=== PATIENT | female | born 1955 | race Caucasian/White ===

== ENCOUNTER 2016-07-07 08:27 | Inpatient (IN) | payer BC ==
[~2016-07-07] VITALS: Ht 162.6 cm; Wt 142.9 kg
[~2016-07-07 08:27] MED LIST: ASPIR-LOW81 MG PO; BENADRYL25 MG PO; CLARITIN,ALAVAR10 MG PO; CLARITIN10 M3 PO; FLUOXETINE HCL20 MG PO; FUROSEMIDE20 MG PO; K-DUR10 MEQ PO; LASIX20 MG PO; LIPITOR40 MG PO; LISINOPRIL20 MG PO; LISINOPRIL5 MG PO; LO-DOSE ASPIRIN81 M2 PO; METOPROLOL SUCC25 MG PO; PANTOPRAZOLE SO40 MG PO; POTASSIUM CHLO20 ME1 PO; PREDNISONE50 MG PO; SINGULAIR10 MG PO; TOPROL XL50 MG PO; TYLENOL REGULA325 MG PO; VENTOLIN HFA18 GM IH; ZESTRIL20 MG PO
[2016-07-14 11:08] VITALS: BP 104/59
[2016-07-14 17:55] LABS: MCH 24.8 PG (29.0-34.0); MCHC 31.8 G/DL (30.0-36.0); MCV 77.9 FL (83-99); MEAN PLAT.VOLUME 10.3 uM^3 (9.5-12.4); PLATELET COUNT 268 K/uL (156-360); RBC DIS.WIDTH-CV 15.7 % (11.8-14.6); RBC DIS.WIDTH-SD 44.4 % (39-53); RED BLOOD COUNT 4.88 M/uL (3.80-5.20)
[2016-07-14 18:02] LABS: WHITE BLOOD COUNT 12.3 K/uL (4.1-10.2)
[2016-07-14 18:12] LABS: ANION GAP 10 MEQ/L (2-14); CHLORIDE 103 MEQ/L (99-109); MAGNESIUM 1.5 mg/dl (1.3-2.7); POTASSIUM 3.3 MEQ/L (3.7-5.4); SAMPLE HEMOLYSIS CHECK 0; SAMPLE ICTERIC CHECK 0; SAMPLE LIPEMIA CHECK 0; SODIUM 138 MEQ/L (136-147)
[2016-07-14 18:18] LABS: GFR ESTIMATE (CALCULATED) > 59 mL/min/; GLUCOSE 217 mg/dL (70-99); UREA NITROGEN (BUN) 6 mg/dL (9-23)
[2016-07-14 18:22] LABS: TROP-I INTERPRETATION NEGATIVE; TROPONIN-I < 0.01 ng/mL (0.0-0.30)
[2016-07-14 20:12] VITALS: BP 99/46
[2016-07-14 21:00] VITALS: BP 99/52
[2016-07-14 21:30] VITALS: BP 90/49
[2016-07-15] VITALS: BP 102/60
[2016-07-15 04:00] VITALS: BP 112/57
[2016-07-15 06:38] LABS: HEMATOCRIT 34.2 % (36.0-46.0); MCH 24.8 PG (29.0-34.0); MCV 80.1 FL (83-99); PLATELET COUNT 304 K/uL (156-360); RED BLOOD COUNT 4.27 M/uL (3.80-5.20); WHITE BLOOD COUNT 10.1 K/uL (4.1-10.2)
[2016-07-15 07:04] LABS: ANION GAP 7 MEQ/L (2-14); CHLORIDE 101 MEQ/L (99-109); GFR ESTIMATE (CALCULATED) > 59 mL/min/; GLUCOSE 150 mg/dL (70-99); MAGNESIUM 1.6 mg/dl (1.3-2.7); SAMPLE HEMOLYSIS CHECK 0; SAMPLE ICTERIC CHECK 0; SAMPLE LIPEMIA CHECK 0; SODIUM 135 MEQ/L (136-147); UREA NITROGEN (BUN) 8 mg/dL (9-23)
[2016-07-15 07:05] LABS: POTASSIUM 4.1 MEQ/L (3.7-5.4)
[2016-07-15 07:09] LABS: TROP-I INTERPRETATION NEGATIVE; TROPONIN-I < 0.01 ng/mL (0.0-0.30)
[2016-07-15 07:52] VITALS: BP 113/65
[2016-07-15 12:04] VITALS: BP 105/67
[2016-07-15] MEDS ORDERED: ALLOPURINOL100 MG PO (15:33)
[2016-07-15] MEDS ORDERED: ATORVASTATIN CA40 MG PO (15:35)
[2016-07-15 16:00] VITALS: BP 126/65
[2016-07-15 20:00] VITALS: BP 102/54
[2016-07-16] VITALS (7 sets, daily range): BP systolic 102–122; BP diastolic 51–69
[2016-07-16 06:21] LABS: HEMATOCRIT 31.9 % (36.0-46.0); MCH 24.7 PG (29.0-34.0); MCHC 30.4 G/DL (30.0-36.0); MCV 81.4 FL (83-99); MEAN PLAT.VOLUME 10.9 uM^3 (9.5-12.4); PLATELET COUNT 260 K/uL (156-360); RBC DIS.WIDTH-CV 16.2 % (11.8-14.6); RBC DIS.WIDTH-SD 48.4 % (39-53); RED BLOOD COUNT 3.92 M/uL (3.80-5.20); WHITE BLOOD COUNT 9.2 K/uL (4.1-10.2)
[2016-07-16 07:09] LABS: ANION GAP 6 MEQ/L (2-14); CHLORIDE 102 MEQ/L (99-109); GFR ESTIMATE (CALCULATED) > 59 mL/min/; GLUCOSE 119 mg/dL (70-99); MAGNESIUM 1.6 mg/dl (1.3-2.7); SAMPLE HEMOLYSIS CHECK 0; SAMPLE ICTERIC CHECK 0; SAMPLE LIPEMIA CHECK 0; SODIUM 136 MEQ/L (136-147); UREA NITROGEN (BUN) 8 mg/dL (9-23)
[2016-07-17 04:17] VITALS: BP 109/53
[2016-07-17 07:49] LABS: HEMATOCRIT 28.6 % (36.0-46.0); MCH 24.6 PG (29.0-34.0); MCHC 30.4 G/DL (30.0-36.0); MCV 80.8 FL (83-99); MEAN PLAT.VOLUME 10.4 uM^3 (9.5-12.4); PLATELET COUNT 263 K/uL (156-360); RBC DIS.WIDTH-CV 16.1 % (11.8-14.6); RBC DIS.WIDTH-SD 47.9 % (39-53); RED BLOOD COUNT 3.54 M/uL (3.80-5.20); WHITE BLOOD COUNT 6.9 K/uL (4.1-10.2)
[2016-07-17 08:16] VITALS: BP 119/53
[2016-07-17 08:17] LABS: ANION GAP 9 MEQ/L (2-14); CHLORIDE 100 MEQ/L (99-109); GFR ESTIMATE (CALCULATED) > 59 mL/min/; GLUCOSE 129 mg/dL (70-99); MAGNESIUM 1.7 mg/dl (1.3-2.7); POTASSIUM 3.8 MEQ/L (3.7-5.4); SAMPLE HEMOLYSIS CHECK 0; SAMPLE ICTERIC CHECK 0; SAMPLE LIPEMIA CHECK 0; SODIUM 139 MEQ/L (136-147); UREA NITROGEN (BUN) 4 mg/dL (9-23)
[2016-07-17 15:00] VITALS: BP 128/60
[2016-07-17 20:10] VITALS: BP 99/52
[2016-07-17 23:27] VITALS: BP 111/59
[2016-07-18 03:42] VITALS: BP 116/67
[2016-07-18 06:57] LABS: HEMATOCRIT 31.4 % (36.0-46.0); MCH 25.4 PG (29.0-34.0); MCHC 31.2 G/DL (30.0-36.0); MCV 81.3 FL (83-99); MEAN PLAT.VOLUME 10.4 uM^3 (9.5-12.4); PLATELET COUNT 277 K/uL (156-360); RBC DIS.WIDTH-CV 16.1 % (11.8-14.6); RBC DIS.WIDTH-SD 47.6 % (39-53); RED BLOOD COUNT 3.86 M/uL (3.80-5.20); WHITE BLOOD COUNT 6.6 K/uL (4.1-10.2)
[2016-07-18 07:21] LABS: ANION GAP 6 MEQ/L (2-14); CHLORIDE 102 MEQ/L (99-109); GFR ESTIMATE (CALCULATED) > 59 mL/min/; GLUCOSE 125 mg/dL (70-99); MAGNESIUM 1.7 mg/dl (1.3-2.7); POTASSIUM 3.4 MEQ/L (3.7-5.4); SAMPLE HEMOLYSIS CHECK 0; SAMPLE ICTERIC CHECK 0; SAMPLE LIPEMIA CHECK 0; SODIUM 139 MEQ/L (136-147); UREA NITROGEN (BUN) 3 mg/dL (9-23)
[2016-07-18 09:00] VITALS: BP 127/76
[2016-07-18 12:00] VITALS: BP 127/70
[2016-07-18 16:00] VITALS: BP 131/70
[2016-07-18 19:51] VITALS: BP 123/66
[2016-07-18 23:00] VITALS: BP 122/69
[2016-07-19 02:57] VITALS: BP 135/72
[2016-07-19 06:55] LABS: HEMATOCRIT 33.1 % (36.0-46.0); MCH 25.1 PG (29.0-34.0); MCHC 31.1 G/DL (30.0-36.0); MCV 80.7 FL (83-99); MEAN PLAT.VOLUME 10.4 uM^3 (9.5-12.4); PLATELET COUNT 341 K/uL (156-360); RBC DIS.WIDTH-CV 16.2 % (11.8-14.6); RBC DIS.WIDTH-SD 47.6 % (39-53); WHITE BLOOD COUNT 7.7 K/uL (4.1-10.2)
[2016-07-19 07:25] LABS: ANION GAP 14 MEQ/L (2-14); CHLORIDE 99 MEQ/L (99-109); GFR ESTIMATE (CALCULATED) > 59 mL/min/; GLUCOSE 128 mg/dL (70-99); MAGNESIUM 1.7 mg/dl (1.3-2.7); POTASSIUM 3.7 MEQ/L (3.7-5.4); SAMPLE HEMOLYSIS CHECK 0; SAMPLE ICTERIC CHECK 0; SAMPLE LIPEMIA CHECK 0; SODIUM 143 MEQ/L (136-147); UREA NITROGEN (BUN) 3 mg/dL (9-23)
[2016-07-19 09:00] VITALS: BP 130/73
[2016-07-19 11:58] VITALS: BP 128/77
[2016-07-19 16:26] VITALS: BP 130/62
[2016-07-19 22:47] VITALS: BP 128/66
[2016-07-20 06:20] LABS: HEMATOCRIT 33.7 % (36.0-46.0); MCH 24.8 PG (29.0-34.0); MCHC 30.9 G/DL (30.0-36.0); MCV 80.2 FL (83-99); PLATELET COUNT 352 K/uL (156-360); RBC DIS.WIDTH-CV 16.1 % (11.8-14.6); RBC DIS.WIDTH-SD 47.2 % (39-53); WHITE BLOOD COUNT 7.9 K/uL (4.1-10.2)
[2016-07-20 06:53] LABS: ANION GAP 7 MEQ/L (2-14); CHLORIDE 102 MEQ/L (99-109); GFR ESTIMATE (CALCULATED) > 59 mL/min/; GLUCOSE 111 mg/dL (70-99); MAGNESIUM 1.8 mg/dl (1.3-2.7); POTASSIUM 4.2 MEQ/L (3.7-5.4); SAMPLE HEMOLYSIS CHECK 0; SAMPLE ICTERIC CHECK 0; SAMPLE LIPEMIA CHECK 0; SODIUM 140 MEQ/L (136-147); UREA NITROGEN (BUN) 3 mg/dL (9-23)
[2016-07-20 08:22] VITALS: BP 87/50
[2016-07-20 16:17] VITALS: BP 112/55
[2016-07-20 19:30] VITALS: BP 138/88
[2016-07-20 23:42] VITALS: BP 129/69
[2016-07-21 03:47] VITALS: BP 132/76
[2016-07-21 06:42] LABS: HEMATOCRIT 33.4 % (36.0-46.0); MCH 23.9 PG (29.0-34.0); MCHC 30.2 G/DL (30.0-36.0); MCV 79.1 FL (83-99); MEAN PLAT.VOLUME 10.2 uM^3 (9.5-12.4); PLATELET COUNT 356 K/uL (156-360); RBC DIS.WIDTH-CV 16.1 % (11.8-14.6); RBC DIS.WIDTH-SD 46.5 % (39-53); RED BLOOD COUNT 4.22 M/uL (3.80-5.20); WHITE BLOOD COUNT 8.4 K/uL (4.1-10.2)
[2016-07-21 07:10] LABS: ANION GAP 9 MEQ/L (2-14); CHLORIDE 98 MEQ/L (99-109); GFR ESTIMATE (CALCULATED) > 59 mL/min/; GLUCOSE 105 mg/dL (70-99); MAGNESIUM 1.7 mg/dl (1.3-2.7); POTASSIUM 3.6 MEQ/L (3.7-5.4); SAMPLE HEMOLYSIS CHECK 0; SAMPLE ICTERIC CHECK 0; SAMPLE LIPEMIA CHECK 0; SODIUM 139 MEQ/L (136-147); UREA NITROGEN (BUN) 7 mg/dL (9-23)
[2016-07-21 09:39] VITALS: BP 112/57
[2016-07-21] MEDS ORDERED: ENDOCET 5-3251 EACH PO (12:07)
== END 2016-07-21 13:08 | disposition home or self-care (01) | DRG 331 ==
LOC: 2SOUTH 08:27 → 5EAST 07-14 10:23 → 2SOUTH 07-14 10:23 → 5EAST 07-14 19:17
PROVIDERS: Physician Assistant; Surgery
DX: C18.7 Malignant neoplasm of sigmoid colon (principal); D12.2 Benign neoplasm of ascending colon; K57.90 Diverticulosis of intestine, part unspecified, without perforation or abscess without bleeding; K52.9 Noninfective gastroenteritis and colitis, unspecified
CPT/HCPCS: 71010; 80048; 82378; 83735; 84100; 84484; 85027; 86850; 86870; 86880; 86900; 86901; 86905; 86920; 88302; 88305; 88309; 94660; 94799; 99202; J0131; J0330; J1100; J1170; J1335; J1650; J1940; J2405; J2710; J2765; J3010; J7050; J7120; S0028